=== PATIENT | female | born 1990 | race Caucasian/White ===

== ENCOUNTER 2016-06-30 10:21 | Emergency (ER) | payer BC ==
[2016-06-30] MEDS ORDERED: IBUPROFEN 600 MG TAB PO STA (13:49)
[2016-06-30] MEDS ORDERED: ONDANSETRON ODT 4 MG TAB PO STA (13:49)
--- NOTE | 2016-06-30 13:51 | ED ---
URI HPI - General Chief Complaint: Upper Respiratory Infection Stated Complaint: coughing, rib, lung pain Time Seen by Provider: 06/30/16 13:21 Source: patient, RN notes reviewed Mode of arrival: ambulatory Limitations: no limitations - History of Present Illness Initial Comments: Patient is a 26-year-old female presents to the emergency room for evaluation of cough 2 months. Patient states when her coughing began she followed-up with her primary care provider and she was sent home with cough medicine. Patient states the cough medicine did not help. Patient states that on Saturday she went to an urgent care clinic and was placed on antibiotics, steroids and cough medicine. Patient states she's not feeling any better. Patient states she is now having right anterior rib pain every time she coughs or takes a deep breath. Patient states she coughs so much that she feels nauseous and vomits. Patient denies receiving her influenza vaccine this year. Patient denies shortness of breath. Patient states she is on medications for anxiety and control. Patient denies history of asthma. Patient denies smoking. - Related Data Home Medications Medication Instructions Recorded Confirmed Amoxic-Pot Clav 875-125Mg 1 tab PO Q12HR 06/30/16 06/30/16 [Augmentin 875-125] Venlafaxine HCl [Effexor XR] 75 mg PO DAILY 06/30/16 06/30/16 guaiFENesin/CODEINE PHOSPHATE 5 - 10 ml PO Q4HR PRN 06/30/16 06/30/16 [Cheratussin AC Syrup] predniSONE 20 mg PO DAILY 06/30/16 06/30/16 Previous Rx's Medication Instructions Recorded Albuterol Inhaler [Ventolin Hfa 1 - 2 puff INHALATION Q6HR PRN #1 06/30/16 Inhaler] inhaler Allergies Allergy/AdvReac Type Severity Reaction Status Date / Time No Known Allergies Allergy Verified 06/30/16 13:14 Review of Systems ROS Statement: Those systems with pertinent positive or pertinent negative responses have been documented in the HPI. ROS Other: All systems not noted in ROS Statement are negative. Past Medical History Past Medical History: No Reported History History of Any Multi-Drug Resistant Organisms: None Reported Additional Past Surgical History / Comment(s): right shoulder surgery times two Past Psychological History: Anxiety, Depression Smoking Status: Never smoker Past Alcohol Use History: Occasional Past Drug Use History: None Reported General Exam - General Exam Comments Initial Comments: Sitting on exam bed, no acute distress. Limitations: no limitations General appearance: alert, in no apparent distress Head exam: Present: atraumatic, normocephalic, normal inspection Eye exam: Present: normal appearance ENT exam: Present: normal exam Neck exam: Present: normal inspection Respiratory exam: Present: normal lung sounds bilaterally. Absent: respiratory distress Cardiovascular Exam: Present: regular rate, normal rhythm, normal heart sounds Extremities exam: Present: normal inspection Back exam: Present: normal inspection Neurological exam: Present: alert, oriented X3, CN II-XII intact, normal gait Psychiatric exam: Present: normal affect, normal mood Skin exam: Present: warm, dry, intact, normal color. Absent: rash Course Vital Signs 06/30/16 06/30/16 06/30/16 11:25 13:28 14:21 Temperature 100.5 F H 99.3 F 98.7 F Pulse Rate 129 H 120 H 114 H Respiratory 20 16 18 Rate Blood Pressure 126/67 115/72 O2 Sat by Pulse 100 100 Oximetry Medical Decision Making - Medical Decision Making Patient is 26-year-old female since emergency room for evaluation of cough. Chest x-ray shows no acute findings. Influenza negative. Patient noted to be tachycardic although patient does state she has a history of anxiety. D-dimer was ordered to rule out PE. D-dimer negative. Agreed to add on inhaler as needed for symptoms. Patient was given a breathing treatment while she was here. Advised patient to follow-up with her primary care provider. Patient states she understands everything that was discussed with her. Return parameters discussed. Case discussed with Dr. Garcia. - Lab Data Lab Results 06/30/16 06/30/16 Range/Units 13:29 14:36 D-Dimer 0.45 (<0.60) mg/L FEU Influenza Type A RNA Not Detected (Not Detectd) Influenza Type B (PCR) Not Detected (Not Detectd) - Radiology Data Radiology results: report reviewed, image reviewed Disposition Clinical Impression: Upper respiratory infection Disposition: HOME SELF-CARE Condition: Good Instructions: Upper Respiratory Infection (ED) Additional Instructions: Continue with prescribed medications. Use inhaler as needed. Please follow up with primary care provider in 1-2 days. If any new symptom arises or symptoms worsen, return to ER as soon as possible. Prescriptions: Albuterol Inhaler [Ventolin Hfa Inhaler] 1 - 2 puff INHALATION Q6HR PRN #1 inhaler PRN Reason: Shortness Of Breath Referrals: Nonstaff,Physician [Primary Care Provider] - 1-2 days Time of Disposition: 15:17
--- NOTE | 2016-06-30 14:14 | XR ---
EXAMINATION TYPE: XR chest 2V DATE OF EXAM: 06/30/2016 2:08 PM COMPARISON: NONE INDICATION: Pain TECHNIQUE: Frontal and lateral views of the chest are obtained. FINDINGS: The heart size is normal. The pulmonary vasculature is normal. The lungs are clear. IMPRESSION: 1. No acute pulmonary process.
[2016-06-30 14:22] VITALS: RESP 18
[2016-06-30] MEDS ORDERED: ALBUTEROL NEBULIZED 2.5 MG/3 ML INHALATION STA (15:15)
[2016-06-30 15:42] VITALS: BP 112/57; PULSE 100; TEMP 98.8
== END 2016-06-30 15:43 | disposition home or self-care (01) ==
LOC: EC 10:21
DX: J06.9 Acute upper respiratory infection, unspecified (principal); R11.2 Nausea with vomiting, unspecified; F32.9 Major depressive disorder, single episode, unspecified; F41.9 Anxiety disorder, unspecified; Z79.899 Other long term (current) drug therapy
CPT/HCPCS: 36415; 71020; 85379; 87502; 94640; 99284